=== PATIENT | male | born 1990 | race Two or more races ===

== ENCOUNTER 2023-05-15 17:16 | Emergency (ER) | payer SELFPAY ==
[2023-05-15] MEDS ORDERED: Lidocaine 1% PF 5 ML VIAL ONE (18:11)
[2023-05-15] MEDS ORDERED: Boostrix 0.5 ML (Tdap) VIAL (>/=7 yrs of age) ONE (18:42)
== END 2023-05-15 18:55 | disposition home or self-care (01) ==
LOC: CSHERS 17:16
DX: S61.216A Laceration without foreign body of right little finger without damage to nail, initial encounter (principal); F17.290 Nicotine dependence, other tobacco product, uncomplicated; W26.8XXA Contact with other sharp object(s), not elsewhere classified, initial encounter; Z23 Encounter for immunization
CPT/HCPCS: 12001; 90471; 90715